=== PATIENT | male | born 1970 | race Caucasian/White ===

== ENCOUNTER 2017-12-11 12:41 | Day surgery (SDC) | payer BC ==
[2017-12-07 11:30] VITALS: BMI 25.8
[~2017-12-11 12:41] MED LIST: LACTATED RINGERS 1,000 ML IV SCH; LIDOCAINE 1% 20 ML VIAL (10MG/ML) FOR IV START INTRADERMA PRN; MIDAZOLAM 2 MG/2 ML VIAL IV PRN
[2017-12-11 12:59] VITALS: RESP 16; TEMP 98.1
[2017-12-11] MEDS ORDERED: LIDOCAINE 1% INJ 10MG/ML (20 ML MDV) ONE (14:19)
[2017-12-11] MEDS ORDERED: PROPOFOL 10 MG/ML 20 ML VIAL IV ONE (14:19)
[2017-12-11] MEDS ORDERED: ONDANSETRON 4 MG/2 ML VIAL ONE (14:19)
--- NOTE | 2017-12-11 14:46 | P.PCN ---
Date of Procedure: 12/11/17 Procedure(s) Performed: Procedure: Esophagogastroduodenoscopy and biopsy. Preoperative diagnosis: History of Blackman's esophagus. Postoperative diagnosis: Sliding hiatal hernia and short segment of Barretts as previously described, multiple biopsies obtained. Preparation sedation: Was provided by anesthesia. Brief clinical history: The patient is a 47-year-old male with chronic reflux symptoms requiring ongoing medical therapy. His last upper endoscopy was in November 2015 and that showed a short segment of Blackman's esophagus. Biopsies did not reveal any evidence of dysplasia. This is part of his surveillance. The patient has been having breakthrough symptoms despite taking his medications Twice-A-Day. No dysphagia or other alarm symptoms. Procedure: With the patient on his left lateral decubitus position and after informed consent and adequate sedation, I passed the Olympus-GIF 160 video upper endoscope through the cricopharyngeus down the esophagus. GE junction was around 39 cm from the incisors and there was a short segment of Barretts as previously described small sliding hiatal hernia. The esophagus did not show any obvious esophagitis or strictures. The endoscope was then passed into the stomach which was insufflated with air and inspected in detail including the retroflex view in the cardia. No obvious abnormalities were seen. Pyloric channel, duodenal bulb, post bulbar area and descending duodenum appeared within normal limits. I obtained multiple biopsies from the Blackman's segment then the endoscope was withdrawn. The patient tolerated the procedure well. Plan: The patient was reassured. Will await biopsy results. I anticipate repeating this exam in 2-3 years. Will continue antireflux diet and measures and acid suppressive therapy. He will follow up with you as planned and I will keep you updated on his progress.
[2017-12-11 14:58] VITALS: BP 126/88; PULSE 77
== END 2017-12-11 15:26 | disposition home or self-care (01) ==
LOC: ORWHC2ENDO 12:41
DX: K22.70 Barrett's esophagus without dysplasia (principal); K21.9 Gastro-esophageal reflux disease without esophagitis; K44.9 Diaphragmatic hernia without obstruction or gangrene; K58.9 Irritable bowel syndrome, unspecified; Z88.0 Allergy status to penicillin; Z79.899 Other long term (current) drug therapy
CPT/HCPCS: 88305; 43239; J2405; J2001; J2704

== ENCOUNTER → 2018-02-05 | Outpatient (CLI) | payer BC ==
--- NOTE | 2018-02-05 08:43 | US ---
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 BPH, This examination was performed using the transrectal probe. EXAM MEASUREMENTS: Gland Size: 5.0 x 2.8 x 4.5cm Volume: 33.6ml Predicted PSA: 4.0 Actual PSA (if available):0.8 Seminal vesicles are unremarkable initially. Marked central zone calcifications are seen in prostate which is slightly enlarged in size. No suspicious nodules are evident. IMPRESSION: Slightly enlarged prostate consistent with BPH, no suspicious focal nodules noted. Predicted PSA = volume x 0.12 ng/ml Calculated Volume = 0.5236 x L x W x H
== END | disposition home or self-care (01) ==
LOC: RADUSMAIN 07:44
PROVIDERS: ATTEND Family Medicine
DX: N40.0 Benign prostatic hyperplasia without lower urinary tract symptoms (principal); N13.8 Other obstructive and reflux uropathy
CPT/HCPCS: 76872